=== PATIENT | female | born 1970 | race Caucasian/White ===

== ENCOUNTER 2016-10-11 03:13 | Emergency (ER) | payer MEDICAID ==
[~2016-10-11] VITALS: Ht 165.1 cm; Wt 69.1 kg
[2016-10-11 03:15] VITALS: BP 143/99
[2016-10-11] MEDS ORDERED: HYDROcodone/APAP 5/325 TABLET PO STA (03:52)
[2016-10-11] MEDS ORDERED: ONDANSETRON ODT 4 MG PO ONE (04:00)
[2016-10-11] MEDS ORDERED: HYDROcodone/APAP 5/325 TABLET ONE (04:03)
[2016-10-11] MEDS ORDERED: ONDANSETRON ODT 4 MG ONE (04:03)
== END 2016-10-11 04:06 | disposition home or self-care (01) ==
LOC: ED 03:45
DX: K08.89 Other specified disorders of teeth and supporting structures (principal)
CPT/HCPCS: 99283; Q0162